=== PATIENT | male | born 1960 | race Caucasian/White ===

== ENCOUNTER 2024-05-15 09:29 | Outpatient (CLI) | payer MEDICARE, SELFPAY ==
--- NOTE | ~2024-05-15 | PE_ITS ---
EXAMINATION: PET_PETPSMAST_PT DATE: 05/15/2024 12:48 INDICATION: Prostate cancer TECHNIQUE: 5.252 mCi of Illucix Ga-[id number]) was administered i.v. Low dose computed yanira graphy (CT) images were acquired from the base of the brain to the base of the brain to the proximal thighs for attenuation correction and anatomic localization. Positron emission tomography (PET) image s were acquired in the same distribution beginning 95 minutes after injection. Images including fused PET/CT images were reconstructed in axial, coronal, and sagittal planes. Automated exposure control technique was employed. The dose-length product was 1277.61mGy-cm. COMPARISON: None FINDINGS: Head/neck: Typical pattern of symmetric physiologic increased activity in the lacrimal, parotid and submandibula r glands as well as along the mucosa of the nasal and oral cavities, pharynx and hypopharynx. No path ologically enlarged cervical lymphadenopathy or suspicious foci of increased uptake in the visualized head or neck. Chest: Mild upper lung predominant emphysema. There is dependent atelectasis in the bilateral lower lobes. H eart size is normal. Atherosclerotic coronary artery calcifications. No pericardial effusion. Thoraci c aorta is normal in caliber. No pathologically enlarged or PSMA avid thoracic lymphadenopathy. Abdomen/pelvis/proximal thighs: Physiologic renal accumulation and excretion of activity in the kidneys, bladder and along portions o f ureters. Mild prostatomegaly with prostate 1.5 cm focus of moderately intense uptake slightly to th e left of midline at the anterior inferior prostate with maximal severe 20.8 and without radiologic c orrelate on the CT imaging. This focus is located just anterior to a coarse left-sided central calcif ication. Normal degree and slightly heterogenous pattern of increased uptake throughout the liver and spleen without radiologic correlate or dominant PSMA avid lesion. The gallbladder, pancreas and bila teral adrenal glands are normal. Moderate uptake scattered throughout the bowels with typical duodena l and proximal jejunal predominance and without radiologic correlate, also likely physiologic. Extens [place] colonic diverticulosis without adjacent comparison to suggest diverticulitis. Normal appendix. Sm all fat-containing umbilical and bilateral inguinal hernias. No other abnormal foci of increased upta ke or pathologically enlarged lymphadenopathy in the abdomen, pelvis or proximal thighs. Musculoskeletal: No suspicious lytic, blastic or PSMA bone lesions to suggest osseous metastatic disease. IMPRESSION: 1. Prostatomegaly with small focus of moderate uptake in the in the anterior inferior prostate slight ly to the left midline consistent with primary prostate cancer. No evident metastatic disease. Reviewed, dictated and finalized at location A. IMPRESSION: 1. Prostatomegaly with small focus of moderate uptake in the in the anterior in ferior prostate slightly to the left midline consistent with primary prostate c ancer. No evident metastatic disease.
== END 2024-05-15 09:30 | disposition home or self-care (01) ==
PROVIDERS: PCP Family Medicine; Visit Provider Urology
DX: C61 Malignant neoplasm of prostate (principal)
CPT/HCPCS: 78815; A9596